=== PATIENT | female | born 1955 | race Caucasian/White ===

== ENCOUNTER 2021-09-26 06:10 | Observation (INO) ==
[2021-09-26] MEDS ORDERED: CeFAZolin Syr 2,000MG/20 ML 2,000 MG/20 ML SYRINGE IVPB ONE (06:27)
[2021-09-26] MEDS ORDERED: Ringers Solution, Lactated 1,000 ML IVC SCH ×2 (06:30→12:28)
[2021-09-26] MEDS ORDERED: Albuterol 2.5 MG/3 ML NEBULIZER IH PRN (06:31)
[2021-09-26] MEDS ORDERED: *HR* FentaNYL (PF) 100 MCG/2 ML VIAL IVP PRN (06:31)
[2021-09-26] MEDS ORDERED: *HR* HYDROmorphone PF 0.5 MG/0.5 ML SYRINGE IVP PRN (06:31)
[2021-09-26] MEDS ORDERED: *HR* OxyCODONE Immed Rel 5 MG TABLET PO PRN ×2 (06:31→12:28)
[2021-09-26] MEDS ORDERED: Ipratropium Neb 0.5 MG NEBULIZER IH PRN (06:31)
[2021-09-26] MEDS ORDERED: Acetaminophen IV 1,000 MG/100 ML BAG IVPB PRN (06:31)
[2021-09-26] MEDS ORDERED: Ondansetron 4 MG/2 ML VIAL IVP PRN ×2 (06:31→12:28)
[2021-09-26] MEDS ORDERED: *HR* Labetalol 20 MG/4 ML SYRINGE IVP PRN (06:31)
[2021-09-26] MEDS ORDERED: *HR* FentaNYL (PF) 100 MCG/2 ML VIAL ONE ×2 (06:36→10:14)
[2021-09-26] MEDS ORDERED: *HR* Midazolam HCl 2 MG/2 ML VIAL ONE (06:36)
[2021-09-26] MEDS ORDERED: Lidocaine -MPF 2% 5 ML VIAL ONE (06:39)
[2021-09-26] MEDS ORDERED: *HR* Phenylephrine 10 MG/ML VIAL ONE (06:50)
[2021-09-26] MEDS ORDERED: Tranexamic Acid 1,000 MG/10 ML VIAL ONE (07:17)
[2021-09-26] MEDS ORDERED: Acetaminophen IV 1,000 MG/100 ML BAG IVPB ONE (07:44)
[2021-09-26] MEDS ORDERED: *HR* Vasopressin 20 UNIT/ML VIAL ONE (07:56)
[2021-09-26] MEDS ORDERED: Ketamine HCL *QUVA* 50mg (1mL) SYRINGE ONE (09:52)
[2021-09-26] MEDS ORDERED: *HR* HYDROmorphone (PF) 1 MG/ML SYRINGE IVP PRN (12:28)
[2021-09-26] MEDS ORDERED: Sennosides 8.6 MG TABLET PO PRN (12:28)
[2021-09-26] MEDS ORDERED: MOM Conc 10 ML UD.LIQ PO PRN (12:28)
[2021-09-26] MEDS ORDERED: Naloxone 0.4 MG/ML INJ IVP PRN (12:28)
[2021-09-26] MEDS ORDERED: *HR* Promethazine 25 MG/ML VIAL IM PRN (12:28)
[2021-09-26] MEDS ORDERED: HYDROcodone BIT/Homatropine 5 MG TABLET PO PRN (12:28)
[2021-09-26] MEDS: Ketorolac 30 MG/ML VIAL IVP SCH ×2 (12:49→19:19)
[2021-09-26] MEDS: CeFAZolin 2 GM/120 ML BAG IVPB SCH (16:39)
[2021-09-26] MEDS: *HR* Metformin 500 MG TABLET PO SCH (16:44)
[2021-09-26] MEDS: Ascorbic Acid 500 MG TABLET PO SCH (16:44)
[2021-09-26] MEDS ORDERED: *HR* Metformin 850 MG TABLET PO SCH (17:00)
[2021-09-27] MEDS: CeFAZolin 2 GM/120 ML BAG IVPB SCH (00:17)
[2021-09-27] MEDS: Ketorolac 30 MG/ML VIAL IVP SCH ×2 (00:17→07:50)
[2021-09-27] MEDS: *HR* Metformin 500 MG TABLET PO SCH (07:57)
[2021-09-27] MEDS: Ascorbic Acid 500 MG TABLET PO SCH ×3 (07:58→19:09)
[2021-09-27] MEDS: Multivit/Ca/Min/Fe/FA 1 TAB TABLET PO SCH (07:58)
[2021-09-27] MEDS ORDERED: lisinopriL 10 MG TABLET PO SCH (09:00)
[2021-09-27 09:06] LABS: Basophils # 0.1 K/mcL (0.0-0.2); Basophils % 0.5 %; Eosinophils # 0.1 K/mcL (0.0-0.6); Eosinophils % 0.6 %; Hematocrit 33.6 % (35.3-44.9); Hemoglobin 10.4 g/dL (11.5-15.4); Immature Granulocytes % 0.3 % (0-4); Lymphocytes # 1.2 K/mcL (0.6-4.6); Lymphocytes % 12.8 %; Mean Corpuscular Hemoglobin 27.2 pg (28.0-33.3); Mean Platelet Volume 9.3 fL (9.4-12.4); Monocytes # 1.1 K/mcL (0.0-1.3); Monocytes % 10.9 %; Neutrophils # 7.2 K/mcL (1.6-8.9); Platelet Count 227 K/mcL (140-400); Red Blood Count 3.82 M/mcL (3.82-4.97); Red Cell Distribution Width 13.7 % (11.5-14.5); Segmented Neutrophils % 74.9 %; White Blood Count 9.7 K/mcL (4.3-11.1)
[2021-09-27 09:26] LABS: Calcium 8.4 mg/dL (8.6-10.3); Potassium 4.8 mEq/L (3.5-5.1)
[2021-09-27] MEDS: Metoprolol XL (24 HR) Succ 25 MG TAB.ER.24H PO SCH (12:05)
[2021-09-27] MEDS: Aspirin Enteric Coated 325 MG Tablet PO SCH ×2 (12:37→22:16)
[2021-09-27] MEDS ORDERED: 0.9 % Sodium Chloride 1,000 ML IVC SCH (13:15)
[2021-09-27] MEDS ORDERED: D5% in Water 1,000 ML IVC PRN (14:16)
[2021-09-27] MEDS ORDERED: Dextrose Gel 15 GM/37.5 ML TUBE PO PRN ×2 (14:16)
[2021-09-27] MEDS ORDERED: *HR* Dextrose 50 % in Water (Syg) 50 ML SYRINGE IVP PRN (14:16)
[2021-09-27] MEDS: 0.9 % Sodium Chloride 1,000 ML IVC SCH (15:02)
[2021-09-27 16:26] LABS: Bilirubin,Urine Negative (Negative); Blood,Urine Negative (Negative); Clarity,Urine Clear (Clear); Color,Urine Light-Yellow (Yellow); Glucose,Urine (UA) Normal (Normal); Hyaline Casts,Urine Few per lpf (None Seen); Ketones,Urine Trace mg/dL (Negative); Leukocyte Esterase,Urine Small (Negative); Mucus,Urine Few per lpf (None-Few); Nitrite,Urine Negative (Negative); PH,Urine 5.5 pH Units (5.0-8.0); Protein,Urine Trace mg/dL (Neg-Trace); RBC,Urine 0-3 per hpf (0-3); Specific Gravity,Urine 1.022 (1.010-1.025); Squamous Epithelial Cell,Urine Moderate per hpf (None-Few); Urobilinogen,Urine Normal (Normal)
[2021-09-27] MEDS: Insulin LISPRO 300 UNITS/3 ML VIAL SUBQ SCH (16:42)
[2021-09-27 17:24] LABS: Protein/Creatinine Ratio,Urine 0.13 mg/mg (0.00-0.20); Sodium, Urine 53.5 mEq/L
[2021-09-28] MEDS: 0.9 % Sodium Chloride 1,000 ML IVC SCH (04:18)
[2021-09-28] MEDS: Insulin LISPRO 300 UNITS/3 ML VIAL SUBQ SCH ×3 (09:01→16:43)
[2021-09-28] MEDS: Multivit/Ca/Min/Fe/FA 1 TAB TABLET PO SCH (09:02)
[2021-09-28] MEDS: Aspirin Enteric Coated 325 MG Tablet PO SCH ×2 (09:02→20:05)
[2021-09-28] MEDS: Ascorbic Acid 500 MG TABLET PO SCH ×2 (09:02→16:42)
[2021-09-28] MEDS: Metoprolol XL (24 HR) Succ 25 MG TAB.ER.24H PO SCH (09:03)
[2021-09-28 11:50] LABS: Basophils % 0.4 %; Eosinophils # 0.1 K/mcL (0.0-0.6); Eosinophils % 1.6 %; Hematocrit 30.5 % (35.3-44.9); Hemoglobin 9.6 g/dL (11.5-15.4); Immature Granulocytes % 0.2 % (0-4); Lymphocytes % 11.7 %; Mean Corpuscular HGB Conc 31.5 g/dL (31.6-35.5); Mean Corpuscular Hemoglobin 27.5 pg (28.0-33.3); Mean Corpuscular Volume 87.4 fL (83.0-100.0); Mean Platelet Volume 9.2 fL (9.4-12.4); Neutrophils # 6.1 K/mcL (1.6-8.9); Platelet Count 199 K/mcL (140-400); Red Blood Count 3.49 M/mcL (3.82-4.97); Red Cell Distribution Width 13.6 % (11.5-14.5); Segmented Neutrophils % 74.1 %; White Blood Count 8.2 K/mcL (4.3-11.1)
[2021-09-28 12:11] LABS: Calcium 7.9 mg/dL (8.6-10.3); Potassium 4.5 mEq/L (3.5-5.1)
[2021-09-28 12:13] LABS: Albumin 3.1 g/dL (3.5-5.7); Calcium 7.8 mg/dL (8.6-10.3); Phosphorous 4.4 mg/dL (2.7-4.5); Potassium 4.5 mEq/L (3.5-5.1); Uric Acid 5.6 mg/dL (2.3-7.6)
[2021-09-28 12:25] LABS: Thyroid Stimulating Hormone 3.796 mcIU/mL (0.340-5.600)
[2021-09-29] MEDS: 0.9 % Sodium Chloride 1,000 ML IVC SCH (00:07)
[2021-09-29 07:04] VITALS: O2SAT 96
[2021-09-29 08:45] LABS: Basophils # 0.1 K/mcL (0.0-0.2); Basophils % 0.6 %; Eosinophils # 0.3 K/mcL (0.0-0.6); Eosinophils % 3.5 %; Hematocrit 32.6 % (35.3-44.9); Hemoglobin 10.3 g/dL (11.5-15.4); Immature Granulocytes % 0.2 % (0-4); Lymphocytes % 12.7 %; Mean Corpuscular HGB Conc 31.6 g/dL (31.6-35.5); Mean Corpuscular Hemoglobin 27.5 pg (28.0-33.3); Mean Corpuscular Volume 87.2 fL (83.0-100.0); Mean Platelet Volume 8.8 fL (9.4-12.4); Monocytes # 0.9 K/mcL (0.0-1.3); Monocytes % 10.9 %; Neutrophils # 5.9 K/mcL (1.6-8.9); Platelet Count 235 K/mcL (140-400); Red Blood Count 3.74 M/mcL (3.82-4.97); Red Cell Distribution Width 13.8 % (11.5-14.5); Segmented Neutrophils % 72.1 %; White Blood Count 8.2 K/mcL (4.3-11.1)
[2021-09-29] MEDS: Ascorbic Acid 500 MG TABLET PO SCH (09:04)
[2021-09-29] MEDS: Metoprolol XL (24 HR) Succ 25 MG TAB.ER.24H PO SCH (09:04)
[2021-09-29] MEDS: Aspirin Enteric Coated 325 MG Tablet PO SCH (09:04)
[2021-09-29] MEDS: Multivit/Ca/Min/Fe/FA 1 TAB TABLET PO SCH (09:04)
[2021-09-29] MEDS: Insulin LISPRO 300 UNITS/3 ML VIAL SUBQ SCH (09:04)
[2021-09-29 09:14] LABS: Calcium 8.3 mg/dL (8.6-10.3); Potassium 4.6 mEq/L (3.5-5.1)
[2021-09-29 11:41] VITALS: BP 123/57; PULSE 94; TEMP 99.1
== END 2021-09-29 13:14 | disposition home or self-care (01) ==
LOC: 4WAOSI 06:10 → SDCAOSI 06:10 → 4WAOSI 12:27
PROVIDERS: ADMIT Orthopaedic Surgery; ATTEND Orthopaedic Surgery